=== PATIENT | male | born 1955 | race Caucasian/White ===

== ENCOUNTER → 2018-01-28 08:07 | Outpatient (POV) | payer BC, SELFPAY | PROVIDERS: PCP Family Medicine; Visit Provider Dentist | DX: Z00.00 Encounter for general adult medical examination without abnormal findings (principal) ==

== ENCOUNTER → 2018-02-11 08:23 | Outpatient (POV) | payer BC, SELFPAY | PROVIDERS: PCP Family Medicine; Visit Provider Dentist | DX: Z00.00 Encounter for general adult medical examination without abnormal findings (principal) ==

== ENCOUNTER → 2019-08-10 08:43 | Outpatient (CLI) | payer MEDICARE, OTHER, SELFPAY ==
--- NOTE | 2019-08-10 08:45 | CA_ITS ---
APPROVED REPORT Proration Clerk: Mary Shore RVT Study Quality: Good Indications: htn Risk Factors Hypertension Hyperlipidemia Diabetes Renal Artery Doppler Origin (R) 181.1/ cm/sec Proximal (R) 231.2/ cm/sec Mid (R) 82.9/ cm/sec Distal (R) 85.8/ cm/sec Renal Aorta Ratio (R) 2.02 Segmental A. (R) 31.6/9.9 cm/sec RI: 0.68 Segmental A. Sup (R) 24.1/9.1 cm/sec Segmental A. Mid (R) 27.0/8.6 cm/sec Segmental A. Inf (R) 31.6/9.9 cm/sec Origin (L) 109.1/ cm/sec Proximal (L) 98.7/ cm/sec Mid (L) 107.5/ cm/sec Distal (L) 119.0/ cm/sec Renal Aorta Ratio (L) 1.04 Segmental A. (L) 61.3/20.0 cm/sec RI: 0.67 Segmental A. Sup (L) 49.5/16.5 cm/sec Segmental A. Mid (L) 61.3/20.0 cm/sec Segmental A. Inf (L) 42.7/14.9 cm/sec Renal Measurements Kidney Size (R) 11.1x6.0 cm Cortical Thickness (R) 1.6 cm Kidney Size (L) 11.4x7.2 cm Cortical Thickness (L) 1.5 cm Conclusion Study suggests less than 60% stenosis of the right renal artery. Study suggests normal left renal artery no stenosis seen. 3.5 cm cyst upper pole left kidney and a 1.1 cm cyst mid pole left kidney. Electronically signed by : Wyatt Barnard MD 08/10/2019 17:14:46
== END ==
PROVIDERS: PCP Family Medicine; Visit Provider Urology
DX: I10 Essential (primary) hypertension; E78.5 Hyperlipidemia, unspecified; I25.10 Atherosclerotic heart disease of native coronary artery without angina pectoris; I48.91 Unspecified atrial fibrillation; Z86.79 Personal history of other diseases of the circulatory system; Z98.890 Other specified postprocedural states
CPT/HCPCS: 93976

== ENCOUNTER → 2019-08-18 14:38 | Outpatient (CLI) | payer MEDICARE, OTHER, SELFPAY | PROVIDERS: PCP Family Medicine; Visit Provider Family Medicine | DX: R42 Dizziness and giddiness (principal) | CPT/HCPCS: 93225; 93226 ==

== ENCOUNTER → 2019-08-22 11:10 | Outpatient (CLI) | payer MEDICARE, OTHER, SELFPAY ==
--- NOTE | 2019-08-22 11:13 | CA_ITS ---
APPROVED REPORT Design Project Manager: ROICO Laterality: Bilateral Study Quality: Good Indications: Dizziness and Vertigo Doppler Spectral Velocity Analysis dICA (R) 66.30/23.00 cm/s dICA (L) 76.10/24.80 cm/s Chen (R) 70.00/20.10 cm/s Chen (L) 69.10/21.60 cm/s pICA (R) 55.40/15.70 cm/s pICA (L) 55.60/15.30 cm/s dCCA (R) 60.30/11.80 cm/s dCCA (L) 80.50/15.80 cm/s pCCA (R) 74.90/14.20 cm/s pCCA (L) 82.80/13.80 cm/s Vert (R) 47.30/13.80 cm/s Vert (L) 34.70/6.30 cm/s ICA/CCA 1.16 ICA/CCA 0.90 Findings Duplex evaluation demonstrates stenosis of the right proximal internal carotid artery <20% with PSV <140 cm/sec, EDV <100 cm/sec, and IC/CC Ratio <4.0.Duplex evaluation demonstrates stenosis of the left proximal internal carotid artery <20% with PSV <140 cm/sec, EDV <100 cm/sec, and IC/CC Ratio <4.0.Antegrade flow seen bilateral vertebral arteries. Conclusion Duplex evaluation demonstrates stenosis of the right proximal internal carotid artery <20% with PSV <140 cm/sec, EDV <100 cm/sec, and IC/CC Ratio <4.0.Duplex evaluation demonstrates stenosis of the left proximal internal carotid artery <20% with PSV <140 cm/sec, EDV <100 cm/sec, and IC/CC Ratio <4.0.Antegrade flow seen bilateral vertebral arteries. Electronically signed by : Nickolas Reyna, 08/23/2019 10:12:45
== END ==
PROVIDERS: PCP Family Medicine; Visit Provider Family Medicine
DX: R42 Dizziness and giddiness (principal)
CPT/HCPCS: 93880

== ENCOUNTER → 2019-08-31 10:09 | Outpatient (CLI) | payer MEDICARE, SELFPAY ==
--- NOTE | 2019-08-31 10:09 | CT_ITS ---
Procedure: CT ANGIO ABDOMEN CLINICAL HISTORY: see renal Renal artery stenosis, abnormal duplex of the renal arteries showing less than 60 percent stenosis of the right renal artery., Hypertension, hyperlipidemia, diabetes COMPARISON: CA RENAL ARTERY DUPLEX from 08/10/2019 TECHNIQUE: IV Contrast: 100ml Optiray 350 Axial images obtained with sagittal and coronal reformats. All CT scans at the facility use one or more dose reduction, viz: automated exposure control, ma/kV adjustment per patient size (including targeted exams where dose is matched to indication, i.e. head), or iterative reconstruction technique. FINDINGS: There are atheromatous changes involving the aorta. The superior mesenteric artery has some mild soft plaque proximally with no significant stenosis. Unremarkable appearing celiac artery. No significant renal artery stenosis evident. There is some minimal calcific plaque involving the segmental artery to the mid aspect of the right kidney without significant stenosis. There is minimal soft plaque involving the mid aspect of the right renal artery with 20- 25 percent stenosis. There is a single left renal artery with some minimal calcific plaque involving the segmental there is a subtle 5 mm hypodensity in the patent dome anteriorly on the left nonspecific too small to categorize. There is a small hiatal hernia. There are multiple nonobstructing punctate bilateral renal calculi which are 3 mm or less. There is a 3.4 cm cyst along the anterior aspect of the left kidney. Incidental note made of colonic diverticulosis branches but no significant stenosis. Scattered calcific plaque involves the lower abdominal aorta and the common and external and internal iliac arteries with no significant stenosis. There is mild ectasia of the distal aspect of the right common iliac of approximately 1.5 cm. Non angiographic findings: IMPRESSION: 1. No hemodynamic significant stenotic lesions of the renal arteries. 2. There is a small amount of calcific plaque involving the segmental aspect of the renal arteries and there is approximately 20 to 25 percent stenosis of the mid aspect of the right renal artery with soft plaque. 3. Nonobstructing bilateral renal calculi Dictated by: Wyatt Barnard MD 09/01/2019 13:21 Electronically signed by Wyatt Barnard MD in [facility] 09/01/2019 13:21
== END ==
PROVIDERS: PCP Family Medicine; Visit Provider Urology
DX: I10 Essential (primary) hypertension (principal); I70.1 Atherosclerosis of renal artery
CPT/HCPCS: 74175

== ENCOUNTER → 2020-05-16 12:54 | Outpatient (CLI) | payer MEDICARE, OTHER, SELFPAY ==
--- NOTE | 2020-05-16 13:04 | XR_ITS ---
PROCEDURE: XR SHOULDER RT MIN 2V CLINICAL INDICATION: PAIN IN RIGHT SHOULDER COMPARISON: CR CXR CHEST(2 VIEWS-NOT PORTABLE) from 03/06/2017 FINDINGS: New fracture or dislocation. There is an old fracture of the junction of the mid distal 3rd of the right clavicle. There are mild osteoarthritic changes of the glenohumeral joint. No lytic or blastic change. Other findings:None. IMPRESSION: Mild osteoarthritic change otherwise negative Dictated by: Wyatt Barnard MD 05/16/2020 13:50 Wyatt Barnard MD in [facility] 05/16/2020 13:50
--- NOTE | 2020-05-16 13:04 | XR_ITS ---
PROCEDURE: XR CHEST 2V CLINICAL HISTORY: COUGH COMPARISON: CR CXR1 CHEST-PORTABLE from 02/13/2013 CR CXR CHEST(2 VIEWS-NOT PORTABLE) from 10/06/2016 CR CXR CHEST(2 VIEWS-NOT PORTABLE) from 03/06/2017 FINDINGS: The cardiomediastinal silhouette and pulmonary vascularity are within normal limits. The lungs are clear without infiltrates, suspicious nodules, or pleural effusions. There is an azygos fissure as a normal variant. There is an old right clavicular fracture. IMPRESSION: No acute findings. Dictated by: Wyatt Barnard MD 05/16/2020 13:51 Wyatt Barnard MD in [facility] 05/16/2020 13:51
[2020-05-16 13:35] VITALS: PULSE 87; PULSE 91
== END ==
PROVIDERS: PCP Family Medicine; Visit Provider Family Medicine
DX: R05 Cough (principal); M25.511 Pain in right shoulder
CPT/HCPCS: 71046; 73030; 94060; 94640

== ENCOUNTER → 2021-05-16 10:31 | Outpatient (CLI) | payer MEDICARE, OTHER, SELFPAY ==
[2021-05-16 11:27] LABS: Chloride 103 mmol/L (98-107); Potassium 4.3 mmoL/L (3.5-5.1); Sodium 138 mmol/L (136-145)
[2021-05-16 11:29] LABS: Alanine Aminotransferase 40 U/L (12-78); Aspartate Amino Transferase 39 U/L (17-59); Blood Urea Nitrogen 23 mg/dl (9-20); Estimated Glomerular Filt Rate 84 ml/min (>60); GFR (African American) 102 ML/MIN (>60)
[2021-05-16 11:30] LABS: Albumin Level 4.2 g/dl (3.5-5.0); Albumin/Globulin Ratio 1.5 (1.1-1.8); Alkaline Phosphatase 70 U/L (38-126); Anion Gap 14.3 mEq/L (5-15); Bilirubin,Total 0.4 mg/dl (0.2-1.3); Calcium 9.3 mg/dl (8.4-10.2); Carbon Dioxide 25 mmol/L (22.0-30.0); Chol/HDL Ratio 4.3 (1-3.5); Cholesterol 217 mg/dl (140-200); Globulin 2.8 g/dL (1.3-3.2); Glucose 192 mg/dl (74-100); HDL Cholesterol 51 mg/dl (40-60); Triglycerides 253 mg/dl (30-150); VLDL Cholesterol 51 mg/dL (0-40)
[2021-05-16 11:41] LABS: Direct LDL Cholesterol 89.91 mg/dL (100-129)
[2021-05-16 12:06] LABS: Hemoglobin A1C 11.2 % (4.0-6.0)
== END ==
PROVIDERS: Visit Provider Family Medicine
DX: E11.9 Type 2 diabetes mellitus without complications (principal); E78.1 Pure hyperglyceridemia; E78.2 Mixed hyperlipidemia
CPT/HCPCS: 36415; 80053; 80061; 83036

== ENCOUNTER → 2023-04-14 07:04 | Outpatient (CLI) | payer MEDICARE, OTHER, SELFPAY ==
--- NOTE | 2023-04-14 07:15 | NM_ITS ---
APPROVED REPORT Exam: Nuclear Stress Test Indication: CAD, H/O MN, DYSRHYTHMIA, HTN, DM, HYPERLIPIDEMIA Patient Location: Outpatient Stress Tech: Reba Montes De Oca DE Tech:Shivani Kennedy EDDIEPal RT (R)(N)(M) Ht: 6 ft 1 in Wt: 190 lbs HR: 82 bpm BP: 129/90 mmHg BSA: 2.11 m2 Rhythm: NSR TID: 1.22 BMI: 25.0 History: CAD, H/O MN, DYSRHYTHMIA, HTN, DM, HYPERLIPIDEMIA Procedure: Patient received 0.4 mg of intravenous Lexiscan, resting heart rate 82 bpm, resting blood pressure 129/90 mmHg, with Lexiscan maximum heart rate achieved was 90 bpm which is % of the maximum predicted heart rate and blood pressure was 143/74 mmHg. With Lexiscan, patient denied any complaint of chest pain. Cardiac Stress and Resting SPECT Images: Cardiac Stress and Resting SPECT images were obtained using technetium 99m Myoview 31.5 mCi stress and 10.03 mCi at rest. Resting and stress imaging in supine position demonstrate a medium-sized, moderate, fixed perfusion defect in the inferior LV wall. This is no longer visualized with prone stress imaging. Findings are suggestive of diaphragmatic attenuation. There is increased transient ischemic dilatation ratio (TID 1.22), suggestive of possible multivessel disease or balanced ischemia. Gated imaging demonstrates low-normal global and regional LV systolic function. LVEF is 52%. Conclusion: Diaphragmatic attenuation is present. No definite evidence of fixed or reversible perfusion defects. Increased transient ischemic dilatation ratio (TID 1.22), suggestive of possible multivessel disease or balanced ischemia. Gated imaging demonstrates low-normal global and regional LV systolic function. LVEF is 52%. Electronically signed by : Alaina Wilkes MD 04/25/2023 17:15:46
[2023-04-14 07:30] LABS: Basophils % 0.5 % (0.1-2.0); Eosinophils # 0.4 K/mm3 (0.0-0.4); Eosinophils % 8.3 % (0.1-12.0); Hematocrit 46.2 % (42.0-52.0); Hemoglobin 14.8 g/dL (14.1-18.0); Lymphocytes # 1.5 K/mm3 (0.7-4.5); Lymphocytes % 34.6 % (10-50); Mean Corpuscular Volume 97.1 fl (80-94); Mean Platelet Volume 7.7 fl (7.4-10.4); Monocytes # 0.2 K/mm3 (0.1-1.0); Monocytes % 5.3 % (1.7-9.3); Neutrophils # 2.2 K/mm3 (1.8-7.8); Neutrophils % 51.3 % (37.0-80.0); Platelet Count 201 K/mm3 (142-424); Red Blood Count 4.76 M/mm3 (4.60-6.20); Red Cell Distribution Width 13.1 % (11.5-17.5); White Blood Count 4.3 K/mm3 (4.8-10.8)
--- NOTE | 2023-04-14 09:00 | CA_ITS ---
APPROVED REPORT Exam: Pharmacologic Technologist: Reba Montes De Oca Ht: 6 ft 1 in Wt: 192 lbs BSA: 2.11 m2 HR: 82 bpm BP: 129/90 mmHg Rhythm: NSR Indications: Abnormal ekg Medical History Medications: Metoprolol,,,,, Losartan,,,,, Allopurinol,,,,, Pantoprazole,,,,, HCTZ,,,,, CloPIdogrel,,,,, FeNOfibrate,,,,, DilTiazem,,,,, RoSUVASTATIN,,,,, INvOKAmet,,,,, ICOSAPENT,,,,, NanOCRYSTALIZED,,,,, Stress Test Details Test: LEXISCAN HR Resting HR: 88 bpm Max Heart Rate (APMHR): 151 bpm Max HR Achieved: 94 bpm Target HR (85% APMHR): 128 bpm % of APMHR: 62 Recovery HR: 85 bpm BP Resting BP: 129.0/90.0 mmHg Max BP: 145.0/81.0 mmHg Recovery BP: 145.0/81.0 mmHg ECG Resting ECG: Normal sinus rhythm Stress ECG: No significant ST changes Arrhythmia: None Clinical Exercise duration: 04:00 min Highest Stage Achieved: Exercise capacity: 1.0 METs Stress ECG Conclusion Symptoms: Flushed feeling Arrhythmias/Ectopy: None ST-T Changes: No significant ST changes Conclusion: Unremarkable Lexiscan stress test. Myoview images are reported separately. Test Summary REST . . . . . . . Resting REST 02:20 . . 88 . 129/ 90 . . Stage 1 . . . . . . . Myoview Injected Stage 1 01:00 . . 89 . . . . Stage 2 01:00 . . 92 . 143/ 74 . . Stage 3 01:00 . . 86 . . . . Stage 4 01:00 . . 88 . 138/ 75 . Stop exercise at 04:00 RECOVERY 01:00 . . 93 . . . . RECOVERY 02:00 . . 88 . 145/ 81 . . RECOVERY 03:00 . . 85 . 145/ 81 . . RECOVERY 03:04 . . 85 . 145/ 81 . . Electronically signed by : Alaina Wilkes MD 04/25/2023 17:09:27
[2023-04-14 09:32] LABS: Alanine Aminotransferase 45 U/L (12-78); Albumin Level 4.1 g/dl (3.5-5.0); Alkaline Phosphatase 60 U/L (38-126); Anion Gap 16.1 mEq/L (5-15); Aspartate Amino Transferase 40 U/L (17-59); Bilirubin,Direct 0.2 mg/dl (0.0-0.4); Bilirubin,Indirect 0.1 mg/dL (0.0-0.9); Bilirubin,Total 0.3 mg/dl (0.2-1.3); Bilirubin,Unconjugated 0.1 mg/dL (0.0-1.1); Blood Urea Nitrogen 23 mg/dl (9-20); Calcium 9.5 mg/dl (8.4-10.2); Carbon Dioxide 23 mmol/L (22.0-30.0); Chloride 103 mmol/L (98-107); Chol/HDL Ratio 4.8 (1-3.5); Cholesterol 182 mg/dl (140-200); Estimated Glomerular Filt Rate 60 ml/min (>60); GFR (African American) 73 ML/MIN (>60); Glucose 162 mg/dl (74-100); HDL Cholesterol 38 mg/dl (40-60); Magnesium 1.3 mg/dl (1.6-2.3); Potassium 4.1 mmoL/L (3.5-5.1); Sodium 138 mmol/L (136-145); Triglycerides 360 mg/dl (30-150); VLDL Cholesterol 72 mg/dL (0-40)
[2023-04-14 09:43] LABS: Direct LDL Cholesterol 76.34 mg/dL (100-129)
[2023-04-14 09:47] LABS: Free T4 (Free Thyroxine) 1.31 ng/dl (0.78-2.19)
[2023-04-14 10:02] LABS: Thyroid Stimulating Hormone 1.94 uIU/mL (0.465-4.68)
== END ==
PROVIDERS: PCP Family Medicine; Visit Provider Physician Assistant
DX: E78.5 Hyperlipidemia, unspecified (principal); I11.9 Hypertensive heart disease without heart failure; I25.10 Atherosclerotic heart disease of native coronary artery without angina pectoris; I48.0 Paroxysmal atrial fibrillation; Z86.79 Personal history of other diseases of the circulatory system; Z95.5 Presence of coronary angioplasty implant and graft; Z98.890 Other specified postprocedural states; R94.31 Abnormal electrocardiogram [ECG] [EKG]
CPT/HCPCS: 36415; 78452; 80048; 80061; 80076; 83735; 84439; 84443; 85025; 93017; A9502; J2785

== ENCOUNTER → 2023-04-30 07:49 | Outpatient (CLI) | payer MEDICARE, OTHER, SELFPAY ==
--- NOTE | 2023-04-30 07:53 | CA_ITS ---
APPROVED REPORT EXAM: Comprehensive 2D, Doppler, and color-flow Echocardiogram Dispatcher Clerk: ANDREEA Layton, RVS Ht: 6 ft 1 in Wt: 193lbs BSA: 2.12 BP: 139/78 mmHg Rhythm: Atrial Fibrillation Indications: paroxysmal afib, abn stress test, palpitations, HTN, HLD 2D Dimensions LVDd 5.52 cm M: 4.2 - 5.9 LVEF (Visual) 48.60 % LVDs 4.15 cm M: 2.5 - 4.0 LA Volume 92.30 mL Aortic Root 3.46 cm M: 3.1 - 3.7 LA Volume Index 43.54 mL/m2 (M/F) 16-34 Left Atrium 3.72 cm M: 3.0 - 4.0 LVOT 2.11 cm (M/F) 1.5-2.5 M-Mode Dimensions RVDd 3.18 cm (0.9-2.6) LA Diam 4.89 cm (1.9-4.0) LVDd 5.19 cm (3.5-5.7) Ao Diam 3.61 cm (2.0-3.7) LVDs 3.87 cm (3.5-5.7) IVSd 1.16 cm (0.6-1.1) PWd 0.98 cm (0.6-1.1) EF (Teich) 52.60% EPSs 0.76 cm FS 27.30% EDV (Teich) 136.50 mL TAPSE 1.97 (<1.7) ESV (Teich) 64.70 mL LV Diastology E Decel Time 87.00 (160-240 msec) E/A Ratio 0.72 MED E' 6.80 (< 7 cm/sec) MED A' 10.10 cm/s E'/MED E' Ratio 9.62 (>14) LAT E' 8.10 (<10 cm/sec) LAT A' 15.60 cm/s E/LAT E' Ratio 8.07 (>14) Aortic Valve LVOT Max 109.00 (70-110 cm/s) LVOT VTI 26.25 cm AoV Peak Elton. 126.00 (50-130 cm/s) AO Peak GR. 6.40 mmHg AO Mean GR. 3.20 (<5 mmHg) AO VTI 26.12 (18-25 cm) MAY (VTI) 3.51 (2.5-4.5 cm2) Mitral Valve MV A Velocity 91.00 (40-130 cm/s) E/A Ratio 0.72 MV Decel. Time 87.00 (160-240 ms) Pulmonary Valve PV Peak Velocity 77.00 (50-150 cm/s) Tricuspid Valve TR P. Velocity 208.00 cm/s RAP Estimate 10.00 mmHg RVSP 27.30 mmHg Left Ventricle The left ventricle is normal size. The left ventricular systolic function is normal. The left ventricular ejection fraction is within the normal range. There is normal left ventricular wall thickness. There is normal LV segmental wall motion. Diastolic function is indeterminate. LVEF is 55%. Right Ventricle The right ventricle is normal size. The right ventricular systolic function is normal. Atria The left atrium is mildly dilated. The right atrium size is normal. Aortic Valve The aortic valve is normal in structure. There is no aortic valvular stenosis. No aortic regurgitation is present. Mitral Valve The mitral valve is normal in structure. No evidence of mitral valve stenosis. Trace mitral regurgitation. Tricuspid Valve The tricuspid valve leaflets are thin and pliable. Mild tricuspid regurgitation. RVSP is 20-25 mmHg. Pulmonic Valve The pulmonary valve is normal in structure. Trace pulmonic regurgitation. Great Vessels The aortic root is normal in size. The ascending aorta is not well visualized. IVC is normal in size and collapses >50% with inspiration. Pericardium There is no pericardial effusion. Other Information Study Quality: Fair Conclusion Normal biventricular systolic function. No significant valvular stenosis or regurgitation. Electronically signed by : Alaina Wilkes MD 05/02/2023 19:54:42
== END ==
PROVIDERS: PCP Family Medicine; Visit Provider Physician Assistant
DX: E78.5 Hyperlipidemia, unspecified (principal); I11.9 Hypertensive heart disease without heart failure; I25.10 Atherosclerotic heart disease of native coronary artery without angina pectoris; I48.0 Paroxysmal atrial fibrillation; Z86.79 Personal history of other diseases of the circulatory system; Z95.5 Presence of coronary angioplasty implant and graft; Z98.890 Other specified postprocedural states
CPT/HCPCS: 93306

== ENCOUNTER 2023-05-04 07:46 | Day surgery (SDC) | payer MEDICARE, OTHER, SELFPAY ==
[2023-05-04] VITALS (16 sets, daily range): BP systolic 109–154; BP diastolic 58–82; PULSE 54–71; RESP 16–20; TEMP 36.9; O2SAT 90–100; BMI 19.7
--- NOTE | 2023-05-04 07:19 | IR_ITS ---
APPROVED REPORT Patient Location: Outpatient Hospice Liaison: MATTHIAS Burr RT (R) PROCEDURES Left heart catheterization Left ventriculogram Selective coronary angiogram Drug-eluting stent deployment to the proximal LAD Drug-eluting stent deployment to the proximal dominant right coronary INDICATION Coronary artery disease, High risk abnormal Myoview, Informed consent was obtained prior to the procedure. COMPLICATIONS None Estimated Blood Loss: Less than 10 mls TECHNIQUE One percent lidocaine was used to anesthetize the right groin. The right femoral artery was accessed via the Seldinger technique. A 4-Namibian sheath was placed in the right femoral artery. The JL-4 and JR-4 catheter was also used to perform left heart catheterization left ventriculogram and selective coronary angiogram. At the end the diagnostic angiogram therapeutic heparin was administered giving a therapeutic ACT and the 4 [place]ian sheath was exchanged for a 6 [place] sheath. A JL 4 guide catheter was placed in left main artery followed by Choice PT extra-support wire down the LAD. A 3.5 x 38 mm [place] frontier stent was deployed at 20 karen reducing the severe stenosis to 0%. Following this the JR4 guide catheter was used to cannulate the right coronary artery however there was not enough guide support to even pass the wire through the stenotic area without the guide kicking out. Because of this an AL 0.75 guide catheter was placed followed by the advancement of a Choice PT extra-support wire. A guide liner was then required for additional support and a 4 mm x 38 mm [place] frontier stent was deployed at 20 karen in the proximal right coronary artery reducing the severe stenosis to 0%. MATTHEW-3 flow was present before and after the procedure. At the end the procedure the apparatus was removed the groin is reprepped closure change sheath was removed partial hemostasis was achieved using Perclose device patient was transferred to the postop holding in stable condition ANGIOGRAPHIC RESULTS The left main artery Normal The left anterior descending artery Has a proximal eccentric 40% stenosis followed by a shelf like eccentric 70% stenosis also proximally located. The mid LAD then has stents which are widely patent with 30 to 40% in-stent restenosis. The circumflex artery Is a nondominant vessel and has a proximal 40% stenosis with additional 30% stenoses. The right coronary artery Is a large dominant tortuous vessel and has a proximal hazy 70% concentric stenosis. There are additional 30 and 40% eccentric and concentric stenoses throughout the mid and distal right coronary artery. The posterior lateral branch is large and has a proximal 60% stenosis while the large posterior descending artery has diffuse mid vessel 40% stenosis The MITCHELL ventriculogram reveals Not performed The left ventricular end-diastolic pressure Not measured IMPRESSION Severe two-vessel coronary artery disease as described above Successful stenting the proximal ID severe disease reduced to 0% with 1 drug-eluting stent Successful stenting of the proximal dominant right coronary artery severe disease reduced to 0% with 1 drug-eluting stent Persistent moderate disease as described above PLAN 1. Dual antiplatelet therapy 2. LDL less than 55 to be achieved with high intensity statin 3. Avoidance of tobacco products 4. Cardiac rehabilitation 5. Risk factor modification Electronically signed by : Darien Santacruz MD 05/04/2023 10:56:38
[2023-05-04 08:45] LABS: Basophils # 0.1 K/mm3 (0-0.2); Basophils % 0.8 % (0.1-2.0); Eosinophils # 0.4 K/mm3 (0.0-0.4); Eosinophils % 6.5 % (0.1-12.0); Hematocrit 46.7 % (42.0-52.0); Hemoglobin 15.3 g/dL (14.1-18.0); Lymphocytes # 1.8 K/mm3 (0.7-4.5); Lymphocytes % 27.7 % (10-50); Mean Corpuscular HGB Conc 32.7 g/dL (31.8-35.4); Mean Corpuscular Hemoglobin 31.2 pg (27.0-31.2); Mean Corpuscular Volume 95.4 fl (80-94); Monocytes # 0.3 K/mm3 (0.1-1.0); Monocytes % 5.2 % (1.7-9.3); Neutrophils # 3.8 K/mm3 (1.8-7.8); Neutrophils % 59.7 % (37.0-80.0); Platelet Count 294 K/mm3 (142-424); Red Cell Distribution Width 13.1 % (11.5-17.5); White Blood Count 6.4 K/mm3 (4.8-10.8)
[2023-05-04 08:52] LABS: Anion Gap 16.3 mEq/L (5-15); Blood Urea Nitrogen 26 mg/dl (9-20); Calcium 9.7 mg/dl (8.4-10.2); Carbon Dioxide 26 mmol/L (22.0-30.0); Chloride 104 mmol/L (98-107); Creatinine Clearance Estimated 72 mL/min (50-200); Estimated Glomerular Filt Rate 60 ml/min (>60); GFR (African American) 73 ML/MIN (>60); Glucose 172 mg/dl (74-100); Potassium 4.3 mmoL/L (3.5-5.1); Sodium 142 mmol/L (136-145)
[2023-05-04 13:48] LABS: CATHL Activated Clotting Time 283 SEC (74-125)
== END 2023-05-04 16:20 | disposition home or self-care (01) ==
PROVIDERS: PCP Family Medicine; Visit Provider Internal Medicine
DX: E78.5 Hyperlipidemia, unspecified (principal); I11.9 Hypertensive heart disease without heart failure; I25.10 Atherosclerotic heart disease of native coronary artery without angina pectoris; I48.0 Paroxysmal atrial fibrillation; R94.39 Abnormal result of other cardiovascular function study; Z79.899 Other long term (current) drug therapy; Z87.891 Personal history of nicotine dependence; Z95.5 Presence of coronary angioplasty implant and graft; Z79.01 Long term (current) use of anticoagulants
CPT/HCPCS: 80048; 85025; 85347; 92928; 93458; 99152; 99153; C1725; C1760; C1769; C1876; C1894; C9600; J1644; J2720; Q9967

== ENCOUNTER → 2023-05-18 09:29 | Outpatient (CLI) | payer MEDICARE, OTHER, SELFPAY ==
[2023-05-18 10:05] LABS: Basophils % 0.8 % (0.1-2.0); Eosinophils # 0.3 K/mm3 (0.0-0.4); Eosinophils % 5.5 % (0.1-12.0); Hematocrit 42.5 % (42.0-52.0); Hemoglobin 14.6 g/dL (14.1-18.0); Lymphocytes # 1.7 K/mm3 (0.7-4.5); Lymphocytes % 28.9 % (10-50); Mean Corpuscular HGB Conc 34.2 g/dL (31.8-35.4); Mean Corpuscular Hemoglobin 33.3 pg (27.0-31.2); Mean Corpuscular Volume 97.1 fl (80-94); Mean Platelet Volume 7.9 fl (7.4-10.4); Monocytes # 0.3 K/mm3 (0.1-1.0); Monocytes % 4.5 % (1.7-9.3); Neutrophils # 3.6 K/mm3 (1.8-7.8); Neutrophils % 60.4 % (37.0-80.0); Platelet Count 223 K/mm3 (142-424); Red Blood Count 4.38 M/mm3 (4.60-6.20); Red Cell Distribution Width 13.3 % (11.5-17.5); White Blood Count 5.9 K/mm3 (4.8-10.8)
[2023-05-18 11:04] LABS: Anion Gap 15.9 mEq/L (5-15); Blood Urea Nitrogen 26 mg/dl (9-20); Calcium 9.7 mg/dl (8.4-10.2); Carbon Dioxide 26 mmol/L (22.0-30.0); Chloride 99 mmol/L (98-107); Estimated Glomerular Filt Rate 60 ml/min (>60); GFR (African American) 73 ML/MIN (>60); Glucose 154 mg/dl (74-100); Potassium 4.9 mmoL/L (3.5-5.1); Sodium 136 mmol/L (136-145)
== END ==
PROVIDERS: PCP Family Medicine; Visit Provider Internal Medicine
DX: I25.10 Atherosclerotic heart disease of native coronary artery without angina pectoris (principal); Z95.5 Presence of coronary angioplasty implant and graft
CPT/HCPCS: 36415; 80048; 85025

== ENCOUNTER 2025-01-24 14:42 | Emergency (ER) | payer MEDICARE, OTHER, SELFPAY ==
[2025-01-24 14:55] VITALS: BP 160/75; PULSE 59; RESP 18; TEMP 36.9; O2SAT 93; BMI 24.6
--- NOTE | 2025-01-24 14:56 | ECG_ITS ---
APPROVED REPORT Exam: Resting ECG HR:64 bpm ECG Measurements Heart Rate 64 AXES HI 160 P 165 QRSd 120 QRS 64 QT 403 T 28 QTc 413 Conclusion SINUS RHYTHM SEPTAL MYOCARDIAL INFARCTION , OF INDETERMINATE AGE [40+ ms Q WAVE IN V1/V2] ABNORMAL ECG UNCONFIRMED REPORT Electronically signed by : QUINN RACHEL, 01/25/2025 06:31:15
[2025-01-24 15:00] VITALS: BP 145/69; PULSE 60; RESP 15; O2SAT 96
[2025-01-24 15:03] LABS: Basophils # 0.1 K/mm3 (0-0.2); Basophils % 0.7 % (0.1-2.0); Eosinophils # 0.3 Kmm3 (0.0-0.4); Eosinophils % 3.5 % (0.1-12.0); Hematocrit 42.2 % (42.0-52.0); Hemoglobin 14.4 g/dL (14.1-18.0); Immature Granulocytes # 0.01 10^3uL; Immature Granulocytes % 0.1 %; Lymphocytes # 2.4 K/mm3 (0.7-4.5); Lymphocytes % 33.2 % (10-50); Mean Corpuscular HGB Conc 34.1 g/dL (31.8-35.4); Mean Corpuscular Hemoglobin 31.4 pg (27.0-31.2); Mean Corpuscular Volume 92.1 fl (80-94); Mean Platelet Volume 9.4 fl (7.4-10.4); Monocytes # 0.4 K/mm3 (0.1-1.0); Neutrophils # 4.1 K/mm3 (1.8-7.8); Neutrophils % 56.5 % (37.0-80.0); Nucleated Red Blood Cells # 0 10^3/uL; Nucleated Red Blood Cells % 0 %; Platelet Count 230 K/mm3 (142-424); Red Blood Count 4.58 M/mm3 (4.60-6.20); Red Cell Distribution Width 12.5 % (11.5-17.5); Red Cell Distribution Width-SD 42.2 fL; White Blood Count 7.2 K/mm3 (4.8-10.8)
[2025-01-24] MEDS: ONDANSETRON 4MG/2ML VIAL 4 MG IV (15:05)
[2025-01-24] MEDS: LACTATED RINGERS 1000ML 1,000 ML 999 ML IV (15:06)
[2025-01-24 15:07] LABS: Albumin Level 4.6 g/dl (3.5-5.0); Chloride 104 mmol/L (98-107); Sodium 139 mmol/L (136-145)
[2025-01-24 15:08] LABS: Potassium 4.2 mmoL/L (3.5-5.1)
[2025-01-24 15:10] LABS: Alanine Aminotransferase 33 U/L (12-78); Alkaline Phosphatase 58 U/L (38-126); Anion Gap 16.2 mEq/L (5-15); Aspartate Amino Transferase 39 U/L (17-59); Bilirubin,Total 0.8 mg/dl (0.2-1.3); Blood Urea Nitrogen 37 mg/dl (9-20); Carbon Dioxide 23 mmol/L (22.0-30.0); Creatine Kinase 142 U/L (55-170); Creatinine Clearance Estimated 63 mL/min (50-200); Estimated Glomerular Filt Rate 54 ml/min (>60); GFR (African American) 66 ML/MIN (>60)
[2025-01-24 15:11] LABS: Albumin/Globulin Ratio 1.4 (1.1-1.8); Globulin 3.3 g/dL (1.3-3.2); Glucose 226 mg/dl (74-100); Total Protein,Serum 7.9 g/dl (6.3-8.2)
--- OUTSIDE RECORDS SUMMARY | 2025-01-24 15:24 | XMS_ITS | Encounter Summary ---
Author Organization [facility] [address] Care Team Providers Care Air Transportation Provider Name Role Phone Erich Ball MD Primary Care Provider + [phone] Louis Brewer MD Unavailable [phone] Encounter Details Date Type Department Care Team (Late st Contact Info) Description 07/30/2017 Orders Only [facility] Ar[facility] Edg [address] [facility] [address] [place] [address] Louis Brewer MD [address] [place] [address] Social History Tobacco Use Types Packs/Day Years Used Date Smoking Tobacco: Former Cigarettes 1.5 26 1 09/30/1968 - 07/30/1995 Smokeless Tobacco: Never Alcohol Use Standard Drinks/Week Comments Yes 12 (1 standard drink = 0.6 oz pu re alcohol) Sex and Gender Information Value Date Recorded Sex Assigned at Not on file Legal Sex Male 9:11 AM EDT Gender Identity Not on file Sexual Orientation Not on file documented as of this encounter Functional Status * Cognitive and Functional Status Question Answer Date of Assessment Author Is the person deaf or does he/she have serious difficulty hearing? No 07/31/2017 9:51 AM Adrienne Delarosa RN Is the person blind or does he/she have serious difficulty seeing even when wearing glasses? No 07/31/2017 9:51 AM Adrienne Delarosa RN Does this person have seriou s difficulty walking or climbing stairs? No 07/31/2017 9:51 AM Adrienne Delarosa RN Does this person have difficulty dressing or bathing? No 07/31/2017 9:51 AM Adrienne Carolina RN documented as of this encounter Mental Status * Cognitive and Functional Status Question Answer Entry Date Author Because of a physical, menta l or emotional condition, does this person have difficulty doing errands alone such as visiting a doctor's office or shopping? No 07/31/2017 9:51 AM Adrienne Delarosa RN Because of a physical, menta l or emotional condition, does this person have serious difficulty concentrating, remembering or making decisions? No 07/31/2017 9:51 AM Adrienne Delarosa RN documented in this encounter Plan of Treatment Not on file documented as of this encounter Procedures Procedure Name Priority Date/Time Associated Diagnosis Comments EP LAB RECORDINGS Routine 07/30/2017 7:39 AM EST documented in this encounter Results * EP LAB RECORDINGS (07/30/2017 7:39 AM EST) 07/30/2017 7:39 AM EST us Louis Brewer MD CARDIAC CATH ORDERABLES Edited Result - Final [facility] [address] [place] [address] documented in this encounter Visit Diagnoses Not on filedocumented in this encounter Care Teams Air Transportation Provider Relationship Specialty Start Date End Date Erich Ball MD [address] [place] [id number] PCP - General Family Medicine 05/15/17 Louis Brewer MD [address] [facility] [place] [id number] Consulting Physician Internal Medicine - Clinical Cardiac Electrophysiology 05/18/17 documented as of this encounter
--- OUTSIDE RECORDS SUMMARY | 2025-01-24 15:24 | XMS_ITS | Clinical Summary ---
Author Organization [facility] Arrhythmia [facility] Address [address] [place] [address] Phone Care Team Providers Care Frame Coverer Name Role Phone Erich Ball MD Primary Care Provider [phone] Louis Brewer MD Unavailable [phone] Allergies No known active allergies Medications canagliflozin-me tformin 150-1,000 mg Oral Tablet Take 150 mg by mouth daily. Active losartan (COZAAR) 100 mg Oral Tablet Take 50 mg by mouth daily. Active pantoprazole (PROTONIX) 40 mg Oral Tablet, Delayed Release (E.C.) Take 40 mg by mouth daily. Active glipiZIDE (GLUCOTROL) 5 mg Oral Tablet Take 5 mg by mouth daily. Active fenofibrate (TRICOR) 145 mg Oral Tablet Take 145 mg by mouth daily. Active Pitavastatin (LIVALO) 4 mg Oral Tablet Take 2 mg by mouth daily. Active allopurinol (ZYLOPRIM) 300 mg Oral Tablet Take 300 mg by mouth daily. Active fish oil omega 3-dha-epa 300-1,000 mg Oral Capsule, Delayed Release(E.C.) Take 2 g by mouth daily. Active ASCORBATE CALCIUM (VITAMIN C ORAL) Take 1 Tab by mouth daily. Active clopidogrel (PLAVIX) 75 mg Oral Tablet Take 75 mg by mouth daily. Active Active Problems Problem Noted Date Diagnosed Date S/P ablation of atrial fibrillation 07/30/2017 Overview (07/30/2017): S/P PVAI, CTI line ablation by Dr. Brewer on 07/30/17 Atrial fibrillation Sinus bradycardia Hypertensive heart disease Gastrointestinal hemorrhage Hyperlipidemia ZANDER (obstructive sleep apnea) Type 2 diabetes mellitus Coronary arteriosclerosis Myocardial infarction Typical atrial flutter Surgical History Surgery Date Site/Laterality Comments CARDIAC SURGERY 11/05/2016 LHC-2 stents ABLATION OF DYSRHYTHMIC FOCUS 07/30/2017 PVAI, CTI line ablation by Dr. Brewer Medical History Medical History Date Comments Atrial fibrillation (HCC) Sinus bradycardia Hypertensive heart disease Gastrointestinal hemorrhage Hyperlipidemia Type 2 diabetes mellitus (HCC) Coronary arteriosclerosis Myocardial infarction (HCC) ZANDER (obstructive sleep apnea) cp ap - pressure setting 4 Hypertension Encounter for blood transfusion 01/2017 GI bleed Anesthesia sluggish upon a wakening Family History Medical History Relation Name Comments Anesth Problems Neg Hx Social History Tobacco Use Types Packs/Day Years Used Date Smoking Tobacco: Former Cigarettes 1.5 26 1 09/30/1968 - 07/30/1995 Smokeless Tobacco: Never Tobacco Cessation:Counseling Given: Yes Alcohol Use Standard Drinks/Week Comments Yes 12 (1 standard drink = 0.6 oz pu re alcohol) Sex and Gender Information Value Date Recorded Sex Assigned at Not on file Legal Sex Male 9:11 AM EDT Gender Identity Not on file Sexual Orientation Not on file Obstetrics History Last Filed Vital Signs Vital Sign Reading Time Taken Comments Blood Pressure 142/82 07/20/2018 9:19 AM EST Pulse 61 07/20/2018 9:19 AM EST Temperature 36.8 C (98.3 F) 07/31/2017 7:51 AM EST Respiratory Rate 18 07/31/2017 7:51 AM EST Oxygen Saturation 96% 07/20/2018 9:19 AM EST Inhaled Oxygen Concentration - - Weight 91.6 kg (202 lb) 07/20/2018 9:19 AM EST Height 185.4 cm (6' 1 ) 07/20/2018 9:19 AM EST Body Mass Index 26.65 07/20/2018 9:19 AM EST Plan of Treatment Health Maintenance Due Date Last Done Comments Wellness Exam Medicare 1956 Kidney Health: uACR 1963 Lipids 1963 Diabetic Eye Exam 1971 DTaP/TDaP/Td (1 - Tdap) 1972 Pneumococcal Vaccine 50+ (1 of 2 - PCV) 1972 Cologuard 1998 FIT 1998 Sigmoidoscopy 1998 Virtual Colonography 1998 Zoster (1 of 2) 2003 RSV or 60+ (1 - Ris k 60-74 years 1-dose series) 2013 Hemoglobin A1c 03/24/2018 09/24/2017 (Postponed) Kidney Health: eGFR 07/30/2018 07/30/2017 COVID-19 Vaccine (1 - 2023-2 5 season) 2024 Influenza Vaccine (Season Ended) 2025 09/24/2017 (Postponed) Colon Cancer Screening 09/24/2027 Colonoscopy 09/24/2027 09/24/2017 (Postponed) Hepatitis C Screening Addressed 09/24/2017 (Postponed) Overridden with the intention of not completing the topic Hepatitis B Vaccine Aged Out No longe r eligible based on patient's age to complete this topic Meningococcal B Vaccine Aged Out No l onger eligible based on patient's age to complete this topic Procedures Procedure Name Priority Date/Time Associated Diagnosis Comments BASIC METABOLIC PANEL STAT 07/30/2017 6:06 AM EST from Last 3 Months or Most Recently Relevant to Health Maintenance Results * (ABNORMAL) BASIC METABOLIC PANEL (07/30/2017 6:06 AM EST) Sodium 139 136 - 145 mmol/L 07/30/2017 6:51 AM EST [facility] Potassium 3.9 3.5 - 5.0 mmol/L 07/30/2017 6:51 AM EST [facility] Chloride 102 98 - 107 mmol/L 07/30/2017 6:51 AM EST [facility] Total CO2 22 22 - 29 mmol/L 07/30/2017 6:51 AM EST [facility] Anion Gap 15 7 - 16 mmol/L 07/30/2017 6:51 AM EST [facility] Calcium 9.0 8.8 - 10.2 mg/dL 07/30/2017 6:51 AM EST [facility] Glucose Lvl 147(H) 82 - 100 mg/dL 07/30/2017 6:51 AM EST [facility] BUN 16 8 - 23 mg/dL 07/30/2017 6:51 AM EST [facility] Creatinine 1.04 0.67 - 1.30 mg/dL 07/30/2017 6:51 AM EST [facility] GFR Afr Am 87 mL/min/1.7 3 m2 07/30/2017 6:51 AM EST [facility] GFR Non Afr Am 76 mL/min/1.7 3 m2 07/30/2017 6:51 AM EST [facility] Comment: GFR Afr Am and GFR Non Afr Am calculated using CKD-EPI equation. GFR Category GFR(mL/min/1.73 m ) Kidney Function G1 >=90 Normal or high G2 60-89 Mildly decreased G3a 45-59 Mildly to moderately decreased G3b 30-44 Moderately to severely decreased G4 15-29 Severely decreased G5 <15 Kidney Failure Blood VENOUS BLOOD / Unknown Venipuncture / Unknown 07/30/2017 6:06 AM EST 07/30/2017 6:15 AM EST Narrative [facility] - 07/30/2017 6:51 AM EST Notify rn cvor if creatine is 1.5 or greater, and/or GFR <55, and/or potassium greater than or equal to 5.5 or less than or equal to 3.0. Do not repeat if done within past 10 days. Louis Brewer MD CHEMISTRY ORDERABLES Fin al Result [facility] [address] [place] [address] from Last 3 Months or Most Recently Relevant to Health Maintenance Insurance [place] [address] Advance Directives For more information, please contact: [phone] * Full Code (Latest Code Status on File) Date Activated Date Inactivated Comments 07/31/2017 9:00 AM 07/31/2017 3:29 PM Care Teams Frame Coverer Relationship Specialty Start Date End Date Erich Ball MD [address] [place] [address] [place] [id number] PCP - General Family Medicine 05/15/17 Louis Brewer MD [address] [place] [address] [place] [address] Consulting Physician Internal Medicine - Clinical Cardiac Electrophysiology 05/18/17
[2025-01-24 15:25] LABS: Troponin I < 0.01 ng/ml (0.00-0.034)
--- NOTE | 2025-01-24 15:27 | CT_ITS ---
FINAL REPORT CLINICAL HISTORY: L vertigo FINDINGS: CT NECK ANGIO, WITHOUT AND WITH CONTRAST TECHNIQUE: Thin section axial CT with contrast with multiplanar 3D MIP reconstruction. NASCET criteria and technique was utilized during interpretation. Aortic arch: Arch shows no significant narrowing. Great vessel origins are widely patent. Right carotid: No significant stenosis is seen of the cervical common or internal carotid artery. Left carotid: No significant stenosis is seen of the cervical common or internal carotid artery. Vertebrals: The vertebral arteries are codominant. No significant stenosis is present. IMPRESSION: No significant stenosis of the cervical carotid arteries This study was performed using automated techniques to achieve radiation exposure as low as reasonably Reviewed, Interpreted and Dictated by Mandeep Hays MD Transcribed by Ifeoma Henderson Authenticated and [facility]
--- NOTE | 2025-01-24 15:27 | CT_ITS ---
FINAL REPORT CLINICAL HISTORY: L vertigo FINDINGS: CTA HEAD TECHNIQUE: Thin section axial CT with contrast with 3D MIP reconstruction This study was performed with techniques to keep radiation doses as low as reasonably achievable, (ALARA). Individualized dose reduction techniques using automated exposure control or adjustment of mA and/or kV according to the patient''s size were employed. No aneurysm is seen. Major intracranial vessels are patent without significant stenosis. . IMPRESSION: Unremarkable This study was performed using automated techniques to achieve radiation exposure as low as reasonably achievable Reviewed, Interpreted and Dictated by Mandeep Hays MD Transcribed by Ifeoma Henderson Authenticated and [facility]
--- NOTE | 2025-01-24 15:27 | CT_ITS ---
FINAL REPORT TECHNIQUE: Noncontrast exam This study was performed with techniques to keep radiation doses as low as reasonably achievable, (ALARA). Individualized dose reduction techniques using automated exposure control or adjustment of mA and/or kV according to the patient''s size were employed. CLINICAL HISTORY: L vertigo FINDINGS: No abnormal density is seen. Ventricles are normal. There is no hemorrhage. No mass effect is seen. Bone windows show no evidence of fracture. IMPRESSION: No acute findings Reviewed, Interpreted and Dictated by Mandeep Hays MD Transcribed by Ifeoma Henderson Authenticated and [facility]
[2025-01-24 15:30] VITALS: BP 142/76; PULSE 63; RESP 14; O2SAT 97
--- NOTE | 2025-01-24 15:37 | ED_ITS ---
Discharge Plan Disposition Patient Disposition: Home, Self-Care Prescriptions Prescriptions: New meclizine 25 mg tablet 25 mg PO TID PRN (Reason: vertigo) Qty: 21 0RF ondansetron 4 mg tablet,disintegrating 4 mg PO Q8H PRN (Reason: nausea and vomiting) 4 Days Qty: 21 0RF Rx Instructions: Only take this if you meclizine is not helping, do not combine it with meclizine No Action allopurinol 300 mg tablet 150 mg PO QDAY fenofibrate nanocrystallized 145 mg tablet 145 mg PO QDAY canagliflozin-metformin [Invokamet] 150-1,000 mg tablet 1 tab PO ONCE pantoprazole [Protonix] 40 mg tablet,delayed release (DR/EC) 20 mg PO QDAY icosapent ethyl 1 gram capsule 2 g PO BID Patient Comments: TAKE TWO CAPSULES BY MOUTH TWICE DAILY ezetimibe [Zetia] 10 mg tablet 10 mg PO DAILY clopidogrel 75 mg tablet See Rx Instructions .ROUTE .COMPLEX Qty: 90 3RF Dose Instruction: TAKE ONE TABLET BY MOUTH EVERY DAY Rx Instructions: TAKE ONE TABLET BY MOUTH EVERY DAY losartan 100 mg tablet See Rx Instructions .ROUTE .COMPLEX Qty: 90 3RF Dose Instruction: TAKE ONE TABLET BY MOUTH EVERY DAY Rx Instructions: TAKE ONE TABLET BY MOUTH EVERY DAY magnesium oxide 400 mg (241.3 mg magnesium) tablet See Rx Instructions .ROUTE .COMPLEX Qty: 90 5RF Dose Instruction: TAKE ONE TABLET BY MOUTH EVERY DAY Rx Instructions: TAKE ONE TABLET BY MOUTH EVERY DAY rosuvastatin 40 mg tablet See Rx Instructions .ROUTE .COMPLEX Qty: 90 3RF Dose Instruction: TAKE ONE TABLET BY MOUTH EVERY DAY Rx Instructions: TAKE ONE TABLET BY MOUTH EVERY DAY diltiazem HCl 180 mg capsule,extended release 24hr See Rx Instructions .ROUTE .COMPLEX Qty: 180 1RF Dose Instruction: TAKE ONE CAPSULE BY MOUTH TWICE DAILY Rx Instructions: TAKE ONE CAPSULE BY MOUTH TWICE DAILY Referrals Follow up/Referrals: Erich Ball MD [Primary Care Provider, Medical] - See instructions Activity Restrictions/Add. Instructions Additional Instructions/Restrictions: At this time it was felt you are safe to be discharged home. If new or worsening symptoms please do not hesitate to return the emergency department. I have prescribed you meclizine for your vertigo, please take it as prescribed and if it does not work quit taking it and take ondansetron as prescribed, do not take them at the same time. The symptoms can last for 1 to 2 weeks, please follow-up with your family doctor within the next week as you are able to ensure things are headed in the right direction. Clinical Impressions Clinical Impression: Heat exhaustion, Benign paroxysmal positional vertigo Instructions Patient Instructions: DI for Diarrhea and Traveler's Diarrhea -- Adult, DI for Diarrhea and Traveler's Diarrhea -- Child, DI for Nausea -- Adult, DI for Nausea -- Child Print Language Print Language: Japanese Discharge ED Provider: Deepak Stearns General Adult HPI <Enrique Reilly MD - Last Filed: 01/24/25 17:50> General Chief complaint: Nausea/Vomiting/Diarrhea Stated complaint: nausea dizziness Time Seen by Provider: 01/24/25 14:54 Related Data Home Medications ?Medication ?Instructions ?Recorded ?Confirmed allopurinol 300 mg tablet 150 mg PO QDAY gout 08/31/17 12/27/24 canagliflozin 150 mg-metformin 1 tab PO ONCE Diabetes 08/31/17 12/27/24 1,000 mg tablet (Invokamet) Held on 05/04/23. Instructions: Resume on 05/07/23. fenofibrate nanocrystallized 145 145 mg PO QDAY Choles terol 08/31/17 12/27/24 mg tablet icosapent ethyl 1 gram capsule 2 g PO BID Cholesterol 08/15/20 12/27/24 pantoprazole 40 mg tablet,delayed 20 mg PO QDAY stomac h 10/02/22 12/27/24 release (Protonix) ezetimibe 10 mg tablet (Zetia) 10 mg PO DAILY 05/18/23 12/27/24 Previous Rx's ?Medication ?Instructions ?Recorded clopidogrel 75 mg tablet See Rx Instructions .Route 0 10/05/23 .COMPLEX #90 tabs losartan 100 mg tablet See Rx Instructions .Route 0 10/05/23 .COMPLEX #90 tabs magnesium oxide 400 mg (241.3 mg See Rx Instructions . Route 02/09/24 magnesium) tablet .COMPLEX #90 tabs rosuvastatin 40 mg tablet See Rx Instructions .Route 1 .COMPLEX #90 tabs diltiazem HCl 180 mg See Rx Instructions .Route 0 09/21/24 capsule,extended release 24 hr .COMPLEX #180 caps meclizine 25 mg tablet 25 mg PO TID PRN vertigo #21 tabs 01/24/25 ondansetron 4 mg disintegrating 4 mg PO Q8H PRN nausea and 01/24/25 tablet vomiting 4 days #21 tabs Allergies Allergy/AdvReac Type Severity Reaction Status Date / Time rivaroxaban (From Xarelto) Allergy bleeding Verified 12/27/24 08:58 atorvastatin (From Lipitor) AdvReac Severe muscle Verified 12/27/24 08:58 pain,aches <Deepak Stearns MD - Last Filed: 01/24/25 15:43> General Mode of Arrival: Ambulatory Source of Information: Patient and Spouse Description of Symptoms (Recalled from ER Triage Doc. by RN): Pt presents to the ED for evaluation of heat exposure. PT stated he was out most of the day and came in for lunch. s/s started 45 minutes ago. PT stated he has been having dizziness and claimed he has had 12 episodes of vomiting. Denies SOA. Denies blood thinners. Pt stated he had a heat stroke in 2017. Denies COPD. History of Present Illness HPI narrative: Please note that above description of symptoms, in this electronic medical record under categorization of recalled from ER triage doctor by RN are reflective of an initial nursing assessment, however, is not reflective of my full history and physical exam that was personally taken and clarified. Consequentially, this preceding description of symptoms, which may include the patient's categorized chief complaint in the EMR, do not reflect my personal clinical impression, and the ultimate description of history of present illness and patient stated complaints should be deferred to this section of the note. Unless stated otherwise or congruent with this section of the note, additional signs, symptoms, or incongruence should be interpreted as inaccurate with my clinical impression. PFSH <Enrique Reilly MD - Last Filed: 01/24/25 17:50> PFSH Medical History Abnormal stress test Paroxysmal A-fib Palpitations Surgical History History of colonoscopy Social History Smoking Status: Never smoker alcohol intake: current alcohol intake frequency: holidays/special occasions only substance use type: denies use current occupational status: employed Travel in the last 8 weeks?: Inside the [place] Have you lived/traveled outside [place] in past 30 days?: No Contact w/someone who lives/traveled outside US past 30 days?: No Exposure to someone with infectious disease in past 14 days?: No Do you have a fever (greater than 100.4 F or 38 C)?: No Have you tested positive for COVID-19?: No Exposed to someone with COVID-19 in past 14 days?: No Do you have a sore throat?: No Do you have a cough?: No Do you have any weakness?: No Do you have any diarrhea?: No Are you experiencing any unusual bleeding?: No Do you have any muscle aches/pain?: No Do you have any abdominal pain?: No Are you experiencing loss of taste or smell?: No <Deepak Stearns MD - Last Filed: 01/24/25 15:43> [facility] Disclaimer: The information contained in this section may have been updated after the patient was seen, as this information can be updated by other users. Other Medical History Have you received the Flu Vaccine for this season: No Have you received the Pneumonia Vaccine: Yes <Deepak Stearns MD - Last Filed: 01/24/25 15:43> ROS Obtained: Yes All systems reviewed & no additional complaints except as documented Physical Exam <Deepak Stearns MD - Last Filed: 01/24/25 15:43> General General appearance: alert Head Head exam: atraumatic and normocephalic Eye Eye exam: Present normal appearance, PERRL and EOMI Neck Neck exam: Present normal inspection, full ROM and trachea midline Respiratory Respiratory exam: Absent respiratory distress, wheezes, stridor, accessory muscle use or prolonged expiratory phase Cardiovascular Cardiovascular exam: Present other (Pulses equal symmetric in upper and lower extremities) Abdominal Exam Abdominal exam: Present soft; Absent distention, tenderness or pulsatile mass Extremities Exam Extremities exam: Absent edema Neurological Exam Neurological exam: Present alert, oriented X3 and CN II-XII intact; Absent motor sensory deficit Skin Skin exam: Present warm and dry; Absent diaphoresis or erythema Medical Decision Making <Enrique Reilly MD - Last Filed: 01/24/25 17:50> Vital Signs: 01/24/25 14:55 01/24/25 15:00 01/24/25 15:30 Temperature 98.4 F Temperature Source Oral Pulse Rate 60 63 Pulse Rate [Right] 59 L Respiratory Rate 18 15 14 Blood Pressure 145/69 H 142/76 H Blood Pressure [Right Arm] 160/75 H Blood Pressure Mean [Right Arm] 103 02 Sat by Pulse Oximetry 93 L 96 97 Lab Data Lab Results 01/24/25 14:53: WBC 7.2, RBC 4.58 L, Hgb 14.4, Hct 42.2, MCV 92.1, MCH 31.4 H, MCHC 34.1, RDW 12.5, Plt Count 230, MPV 9.4, Neut % (Auto) 56.5, Lymph % (Auto) 33.2, [place] % (Auto) 6.0, Eos % (Auto) 3.5, Baso % (Auto) 0.7, Neut # (Auto) 4.1, Lymph # (Auto) 2.4, [place] # (Auto) 0.4, Eos # (Auto) 0.3, Baso # (Auto) 0.1, Sodium 139, Potassium 4.2, Chloride 104, Carbon Dioxide 23, Anion Gap 16.2 H, B UN 37 H, Creatinine 1.30 H, Estimated Creat Clear 63, Estimated GFR 54 L, Est GFR ( Amer) 66, Glucose 226 H, Calcium 10.0, Total Bilirubin 0.8, AST 39, ALT 33, Alkaline Phosphatase 58, Total Creatine Kinase 142, Troponin I < 0.01, Total Protein 7.9, Albumin 4.6, Globulin 3.3 H, Albumin/Globulin Ratio 1.4, HCV Ab KATLYN w/Rflx PCR Qn Negative, HIV Ag/Ab Combo Qual Negative 01/24/25 14:53 01/24/25 14:53 Orders (Tests/Meds): ED MEDICATIONS Generic Name Dose Route Start Last Admin Trade Name Freq PRN Reason Stop Dose Admin Meclizine HCl 25 mg 01/24/25 17:44 Meclizine 25mg Tablet PO 01/24/25 17:45 ONCE ONE Discontinued Medications Generic Name Dose Route Start Last Admin Trade Name Freq PRN Reason Stop Dose Admin Lactated Ringer's 1,000 mls @ 999 mls/hr 01/24/25 14:54 01/24/25 15:06 Lactated Ringer's 1000 Ml Bag IV 01/24/25 15:54 999 mls/hr .Q1H1M ONE Administration Iopamidol 80 ml 01/24/25 15:55 01/24/25 16:00 Iopamidol-370 (76%);100ml Bottle IV 01/24/25 15:56 80 ml ONCE ONE Administration Ondansetron HCl 4 mg 01/24/25 14:54 01/24/25 15:05 Ondansetron 4mg/2ml Vial IV 01/24/25 14:55 4 mg ONCE ONE Administration Sodium Chloride 10 ml 01/24/25 15:55 01/24/25 16:00 Sodium Chloride 0.9% 10ml Syr (Rad Only) IV 01/24/25 15:56 10 ml ONCE ONE Administration Sodium Chloride 50 ml 01/24/25 15:55 01/24/25 16:00 0.9 % Sodium Chloride 50 Ml Vial IV 01/24/25 15:56 50 ml ONCE ONE Administration ORDERS Category Date Time Status CT angio head Stat Cat Scan 01/24/25 15:[address] angio neck Stat Cat Scan 01/24/25 15:[address] head/brain wo con Stat Cat Scan 01/24/25 15:27 Completed CBC w/Auto Diff [Complete Blood Count Auto Diff] Stat Lab 01/24/25 14:53 Completed CK [Creatine Kinase] Stat Lab 01/24/25 14:53 Completed CMP [Comprehensive Metabolic Panel] Stat Lab 01/24/25 14:53 Completed HIV Combo Stat Lab 01/24/25 14:53 Completed Hepatitis C Ab Qual. W/ RFX Stat Lab 01/24/25 14:53 Completed Trop I [Troponin I] Stat Lab 01/24/25 14:53 Completed Troponin I Q3H Lab 01/24/25 18:00 Ordered Troponin I Q3H Lab 01/24/25 21:00 Ordered Medical Decision Narrative: 69-year-old male history of hypertension, hyperlipidemia, CAD status post stenting, A-fib status post ablation not currently on anticoagulation presenting with concern for heatstroke. He states that he had heatstroke in the past. Today, he was working on the farm all day in the heat. States that he was staying plenty hydrated. Denies any confusion, altered mental status, strokelike symptoms, but states after working in the sun he got to his truck, was backing up and became woozy. Came in for further evaluation given history. No current symptoms. History obtained with patient and . On arrival, very clinically well. Alert and oriented, neurologically intact. Cardiopulmonary exam normal. Differential includes heat exhaustion, metabolic abnormality, dehydration, among others. Workup initiated. EG independently interpreted. Sinus rhythm. Old Q waves in septal leads. Ventricular rate 64, [place] 160, QRS 120, QTc 413 with no acute ischemic changes. Patient given fluids and Zofran. Prior to return of workup, care handed off to oncoming physician. Enrique Reilly: Upon assumption care patient is hemodynamically stable. On my exam patient has positive Tong-Hallpike after he was complaining he was dizzy with his head turned to the left. He has torsional nystagmus on the left which is consistent with benign paroxysmal positional vertigo however noncontrasted CT scan of the head and CTA of the head and neck will also be obtained. Hematologic labs reviewed by me and are nonactionable. I suspect the patient had heat exhaustion and also has superimposed BPPV. Noncontrasted CT scan of the head and neck nonactionable. Upon repeat evaluation patient was dizzy but able to ambulate at bedside. Given this and his classic physical exam findings I suspect BPPV and patient is appropriate for outpatient management at this time shared decision making discussion was had prior to discharge patient will be given meclizine and wishes to be discharged with meclizine and a antiemetic as a backup should meclizine fail, he has had vertigo before and meclizine did not modify his symptoms in a meaningful way but is willing to try it again. Patient is appropriate for discharge at this time was given return precautions verbalized understanding. Splitter Machine disclaimer Much of this encounter note is an electronic cigarette paper tester spoken language to printed text. Electronic cigarette paper tester of the spoken language may permit errors. Although I have reviewed the note, some errors may still exist. <Deepak Stearns MD - Last Filed: 01/24/25 15:43> Medical Records Medical records reviewed: Yes I reviewed the patient's medical records. Screening: Per USPSTF and CDC recommendations, given the prevalence of disease in our region, it is our hospital?s policy to screen for HIV and viral Hepatitis for all patients aged 18 and over and those with ongoing risk factors. Gus Inquiry Pt receiving controlled substance: No Gus was queried for this patient: No Vital Signs: 01/24/25 14:55 01/24/25 15:00 01/24/25 15:30 Temperature 98.4 F Temperature Source Oral Pulse Rate 60 63 Pulse Rate [Right] 59 L Respiratory Rate 18 15 14 Blood Pressure 145/69 H 142/76 H Blood Pressure [Right Arm] 160/75 H Blood Pressure Mean [Right Arm] 103 02 Sat by Pulse Oximetry 93 L 96 97 Lab Data Lab Results 01/24/25 14:53: WBC 7.2, RBC 4.58 L, Hgb 14.4, Hct 42.2, MCV 92.1, MCH 31.4 H, MCHC 34.1, RDW 12.5, Plt Count 230, MPV 9.4, Neut % (Auto) 56.5, Lymph % (Auto) 33.2, [place] % (Auto) 6.0, Eos % (Auto) 3.5, Baso % (Auto) 0.7, Neut # (Auto) 4.1, Lymph # (Auto) 2.4, [place] # (Auto) 0.4, Eos # (Auto) 0.3, Baso # (Auto) 0.1, Sodium 139, Potassium 4.2, Chloride 104, Carbon Dioxide 23, Anion Gap 16.2 H, B UN 37 H, Creatinine 1.30 H, Estimated Creat Clear 63, Estimated GFR 54 L, Est GFR ( Amer) 66, Glucose 226 H, Calcium 10.0, Total Bilirubin 0.8, AST 39, ALT 33, Alkaline Phosphatase 58, Total Creatine Kinase 142, Troponin I < 0.01, Total Protein 7.9, Albumin 4.6, Globulin 3.3 H, Albumin/Globulin Ratio 1.4, HCV Ab KATLYN w/Rflx PCR Qn Negative, HIV Ag/Ab Combo Qual Negative Orders (Tests/Meds): ED MEDICATIONS Generic Name Dose Route Start Last Admin Trade Name Freq PRN Reason Stop Dose Admin Meclizine HCl 25 mg 01/24/25 17:44 Meclizine 25mg Tablet PO 01/24/25 17:45 ONCE ONE Discontinued Medications Generic Name Dose Route Start Last Admin Trade Name Freq PRN Reason Stop Dose Admin Lactated Ringer's 1,000 mls @ 999 mls/hr 01/24/25 14:54 01/24/25 15:06 Lactated Ringer's 1000 Ml Bag IV 01/24/25 15:54 999 mls/hr .Q1H1M ONE Administration Iopamidol 80 ml 01/24/25 15:55 01/24/25 16:00 Iopamidol-370 (76%);100ml Bottle IV 01/24/25 15:56 80 ml ONCE ONE Administration Ondansetron HCl 4 mg 01/24/25 14:54 01/24/25 15:05 Ondansetron 4mg/2ml Vial IV 01/24/25 14:55 4 mg ONCE ONE Administration Sodium Chloride 10 ml 01/24/25 15:55 01/24/25 16:00 Sodium Chloride 0.9% 10ml Syr (Rad Only) IV 01/24/25 15:56 10 ml ONCE ONE Administration Sodium Chloride 50 ml 01/24/25 15:55 01/24/25 16:00 0.9 % Sodium Chloride 50 Ml Vial IV 01/24/25 15:56 50 ml ONCE ONE Administration ORDERS Category Date Time Status CT angio head Stat Cat Scan 01/24/25 15:[address] angio neck Stat Cat Scan 01/24/25 15:[address] head/brain wo con Stat Cat Scan 01/24/25 15:27 Completed CBC w/Auto Diff [Complete Blood Count Auto Diff] Stat Lab 01/24/25 14:53 Completed CK [Creatine Kinase] Stat Lab 01/24/25 14:53 Completed CMP [Comprehensive Metabolic Panel] Stat Lab 01/24/25 14:53 Completed HIV Combo Stat Lab 01/24/25 14:53 Completed Hepatitis C Ab Qual. W/ RFX Stat Lab 01/24/25 14:53 Completed Trop I [Troponin I] Stat Lab 01/24/25 14:53 Completed Troponin I Q3H Lab 01/24/25 18:00 Ordered Troponin I Q3H Lab 01/24/25 21:00 Ordered Medical Decision Narrative: 69-year-old male history of hypertension, hyperlipidemia, CAD status post stenting, A-fib status post ablation not currently on anticoagulation presenting with concern for heatstroke. He states that he had heatstroke in the past. Today, he was working on the farm all day in the heat. States that he was staying plenty hydrated. Denies any confusion, altered mental status, strokelike symptoms, but states after working in the sun he got to his truck, was backing up and became woozy. Came in for further evaluation given history. No current symptoms. History obtained with patient and . On arrival, very clinically well. Alert and oriented, neurologically intact. Cardiopulmonary exam normal. Differential includes heat exhaustion, metabolic abnormality, dehydration, among others. Workup initiated. EG independently interpreted. Sinus rhythm. Old Q waves in septal leads. Ventricular rate 64, [place] 160, QRS 120, QTc 413 with no acute ischemic changes. Patient given fluids and Zofran. Prior to return of workup, care handed off to oncoming physician. Splitter Machine disclaimer Much of this encounter note is an electronic cigarette paper tester spoken language to printed text. Electronic cigarette paper tester of the spoken language may permit errors. Although I have reviewed the note, some errors may still exist. Critical Care <Deepak Stearns MD - Last Filed: 01/24/25 15:43> Critical Care Time Critical Care Time: No
[2025-01-24 16:00] LABS: HIV Combo NEGATIVE (Negative)
[2025-01-24] MEDS: SODIUM CHLORIDE 0.9% 10ML SYR (RAD ONLY) 10 ML IV (16:00)
[2025-01-24] MEDS: IOPAMIDOL-370 (76%);100ML BOTTLE 80 ML IV (16:00)
[2025-01-24] MEDS: 0.9 % SODIUM CHLORIDE 50 ML VIAL IV (16:00)
[2025-01-24 16:08] LABS: Hepatitis C Ab Qual. W/ RFX NEGATIVE (Negative)
--- NOTE | 2025-01-24 17:36 | PC.NURSE ---
followup on PO challenge, PT currently vomiting in emesis bag.
[2025-01-24] MEDS: MECLIZINE 25MG TABLET 25 MG PO (17:52)
[2025-01-24 18:00] VITALS: BP 167/87; PULSE 69; RESP 18; TEMP 36.9; O2SAT 96
== END 2025-01-24 18:01 | disposition home or self-care (01) ==
PROVIDERS: Emergency Provider Emergency Medicine; PCP Family Medicine
DX: T67.5XXA Heat exhaustion, unspecified, initial encounter (principal); H81.10 Benign paroxysmal vertigo, unspecified ear; R11.2 Nausea with vomiting, unspecified
CPT/HCPCS: 70450; 70496; 70498; 80053; 82550; 84484; 85025; 86803; 87389; 93005; 96361; 96374; 99285; J2405; J7120; Q9967

== ENCOUNTER 2025-04-20 11:41 | Emergency (ER) | payer MEDICARE, OTHER, SELFPAY ==
[2025-04-20] VITALS (14 sets, daily range): BP systolic 115–160; BP diastolic 70–85; PULSE 53–89; RESP 14–19; TEMP 36.5; O2SAT 94–98; BMI 23.1
--- NOTE | 2025-04-20 13:08 | CT_ITS ---
FINAL REPORT TECHNIQUE: Noncontrast exam This study was performed with techniques to keep radiation doses as low as reasonably achievable, (ALARA). Individualized dose reduction techniques using automated exposure control or adjustment of mA and/or kV according to the patient''s size were employed. CLINICAL HISTORY: fall, head trauma, dizziness FINDINGS: No abnormal density is seen. Ventricles are normal. There is no hemorrhage. No mass effect is seen. Bone windows show no evidence of fracture. IMPRESSION: No acute findings Reviewed, Interpreted and Dictated by Mandeep Hays MD Transcribed by Rachel Avendano Authenticated and [facility]
--- NOTE | 2025-04-20 13:08 | ED_ITS ---
<Statement entered by Carri Mendiola DO - 04/23/25 00:58> I was consulted by the JONI, and we discussed the complexity of problems being addressed. I approve the treatment and management plan for this patient's care in the emergency department, thus performing a substantial portion of the medical decision making. Carri Mendiola DO Discharge Plan Disposition Patient Disposition: Home, Self-Care Condition: Good Prescriptions Prescriptions: No Action allopurinol 300 mg tablet 150 mg PO QDAY fenofibrate nanocrystallized 145 mg tablet 145 mg PO QDAY canagliflozin-metformin [Invokamet] 150-1,000 mg tablet 1 tab PO ONCE pantoprazole [Protonix] 40 mg tablet,delayed release (DR/EC) 20 mg PO QDAY icosapent ethyl 1 gram capsule 2 g PO BID Patient Comments: TAKE TWO CAPSULES BY MOUTH TWICE DAILY ezetimibe [Zetia] 10 mg tablet 10 mg PO DAILY clopidogrel 75 mg tablet See Rx Instructions .ROUTE .COMPLEX Qty: 90 3RF Dose Instruction: TAKE ONE TABLET BY MOUTH EVERY DAY Rx Instructions: TAKE ONE TABLET BY MOUTH EVERY DAY losartan 100 mg tablet See Rx Instructions .ROUTE .COMPLEX Qty: 90 3RF Dose Instruction: TAKE ONE TABLET BY MOUTH EVERY DAY Rx Instructions: TAKE ONE TABLET BY MOUTH EVERY DAY magnesium oxide 400 mg (241.3 mg magnesium) tablet See Rx Instructions .ROUTE .COMPLEX Qty: 90 5RF Dose Instruction: TAKE ONE TABLET BY MOUTH EVERY DAY Rx Instructions: TAKE ONE TABLET BY MOUTH EVERY DAY rosuvastatin 40 mg tablet See Rx Instructions .ROUTE .COMPLEX Qty: 90 3RF Dose Instruction: TAKE ONE TABLET BY MOUTH EVERY DAY Rx Instructions: TAKE ONE TABLET BY MOUTH EVERY DAY diltiazem HCl 180 mg capsule,extended release 24hr See Rx Instructions .ROUTE .COMPLEX Qty: 180 1RF Dose Instruction: TAKE ONE CAPSULE BY MOUTH TWICE DAILY Rx Instructions: TAKE ONE CAPSULE BY MOUTH TWICE DAILY meclizine 25 mg tablet 25 mg PO TID PRN (Reason: vertigo) Qty: 21 0RF ondansetron 4 mg tablet,disintegrating 4 mg PO Q8H PRN (Reason: nausea and vomiting) 4 Days Qty: 21 0RF Rx Instructions: Only take this if you meclizine is not helping, do not combine it with meclizine Referrals Follow up/Referrals: Erich Ball MD [Primary Care Provider, Medical] - See instructions Activity Restrictions/Add. Instructions Additional Instructions/Restrictions: Please return to the emergency department with any worsening signs or symptoms, please follow-up with your PCP in the upcoming days/week, I recommend ibuprofen and Tylenol as needed for symptomatic relief. Clinical Impressions Clinical Impression: Hematoma of scalp, Fall, CHI (closed head injury) Instructions Patient Instructions: DI for Closed Head Injury, Bruises (Alternative Therapy), DI for Postconcussion Syndrome Print Language Print Language: Gambian Discharge ED Provider: Enrique Reilly General Adult HPI <JAMEY Ulloa - Last Filed: 04/20/25 16:11> General Chief complaint: Fall Stated complaint: AO 1115am 04/21/25 Fell Backwards Hit Head Time Seen by Provider: 04/20/25 13:08 Mode of Arrival: Ambulatory Source of Information: Patient Description of Symptoms (Recalled from ER Triage Doc. by RN): pt reports at approximately 1115 he stumbled and fell backwards hitting the posterior head on concrete. He has a very small lac to the posterior head. Bleeding is controlled at this time. pt denies LOC. However, he reports seeing stars initially and is now back to his baseline. Pt A&O X4. pt takes 81mg ASA daily but no blood thinners. pt reports he has had ongoing vertigo for a few years but is unable to tolerate meclizine. pt reports takinig 600mg ibuprofen about 1hr ago. His pain is now 1/10. pt also reports generalized aching from the fall but states he only wants worked up for his head. pt denies loss of bowel/bladder since fall. History of Present Illness HPI narrative: 69-year-old male presents the emergency department accompanied by his for a closed head injury, patient states he was working out in his barn around 1115, when he stumbled , fell backwards striking his posterior occipital scalp, on concrete, denies any LOC, did state that he saw some stars , endorsed numbness and tingling throughout his whole body, was able to ambulate after the injury, patient has any presyncopal or syncopal event, patient is on antiplatelet therapy with aspirin, denies any anticoagulant use, patient states he has what sound like BPV, but denies any vertiginous symptoms at this time, describes it as he got tripped up on something on the ground , sustained a small laceration/abrasion to the posterior occipital scalp, no active bleeding at this time, no fever no chills no chest pain no shortness of breath no nausea vomit no constipation or diarrhea, urinary cosmetology, patient has any alcohol tobacco or drug use, other past medical history is consistent with paroxysmal atrial fibrillation, CAD, multiple stent placements, follows with cardiology, BPPV, ZANDER, hypertension, hyperlipidemia. Initial triage vitals are unremarkable. Of note, patient took 60 mg ibuprofen prior to arrival, states his pain is a 1 out of 10, denies any other upper or lower extremity injury, denies any saddle anesthesia, denies urinary bladder or bowel dysfunction, no radicular type otology, no numbness or tingling, no back pain, no mid back pain. Please note that above description of symptoms, in this electronic medical record under categorization of recalled from ER triage doctor by RN are reflective of an initial nursing assessment, however, is not reflective of my full history and physical exam that was personally taken and clarified. Consequentially, this preceding description of symptoms, which may include the patient's categorized chief complaint in the EMR, do not reflect my personal clinical impression, and the ultimate description of history of present illness and patient stated complaints should be deferred to this section of the note. Unless stated otherwise or congruent with this section of the note, additional signs, symptoms, or incongruence should be interpreted as inaccurate with my clinical impression. Onset (ago): hour(s) Related Data Home Medications ?Medication ?Instructions ?Recorded ?Confirmed allopurinol 300 mg tablet 150 mg PO QDAY gout 08/31/17 12/27/24 canagliflozin 150 mg-metformin 1 tab PO ONCE Diabetes 08/31/17 12/27/24 1,000 mg tablet (Invokamet) Held on 05/04/23. Instructions: Resume on 05/07/23. fenofibrate nanocrystallized 145 145 mg PO QDAY Choles terol 08/31/17 12/27/24 mg tablet icosapent ethyl 1 gram capsule 2 g PO BID Cholesterol 08/15/20 12/27/24 pantoprazole 40 mg tablet,delayed 20 mg PO QDAY stomac h 10/02/22 12/27/24 release (Protonix) ezetimibe 10 mg tablet (Zetia) 10 mg PO DAILY 05/18/23 12/27/24 Previous Rx's ?Medication ?Instructions ?Recorded clopidogrel 75 mg tablet See Rx Instructions .Route 0 10/05/23 .COMPLEX #90 tabs losartan 100 mg tablet See Rx Instructions .Route 0 10/05/23 .COMPLEX #90 tabs magnesium oxide 400 mg (241.3 mg See Rx Instructions . Route 02/09/24 magnesium) tablet .COMPLEX #90 tabs rosuvastatin 40 mg tablet See Rx Instructions .Route 1 .COMPLEX #90 tabs meclizine 25 mg tablet 25 mg PO TID PRN vertigo #21 tabs 01/24/25 ondansetron 4 mg disintegrating 4 mg PO Q8H PRN nausea and 01/24/25 tablet vomiting 4 days #21 tabs diltiazem HCl 180 mg See Rx Instructions .Route 0 04/06/25 capsule,extended release 24 hr .COMPLEX #180 caps Allergies Allergy/AdvReac Type Severity Reaction Status Date / Time rivaroxaban (From Xarelto) Allergy bleeding Verified 04/20/25 13:00 atorvastatin (From Lipitor) AdvReac Severe muscle Verified 04/20/25 13:00 pain,aches [facility] <JAMEY Ulloa - Last Filed: 04/20/25 16:11> [facility] Disclaimer: The information contained in this section may have been updated after the patient was seen, as this information can be updated by other users. Medical History Abnormal stress test Paroxysmal A-fib Palpitations Surgical History History of colonoscopy Social History Smoking Status: Former smoker alcohol intake: current alcohol intake frequency: holidays/special occasions only substance use type: denies use current occupational status: employed Travel in the last 8 weeks?: Inside the [place] Have you lived/traveled outside US in past 30 days?: No Contact w/someone who lives/traveled outside US past 30 days?: No Exposure to someone with infectious disease in past 14 days?: No Do you have a fever (greater than 100.4 F or 38 C)?: No Have you tested positive for COVID-19?: No Exposed to someone with COVID-19 in past 14 days?: No Do you have a sore throat?: No Do you have a cough?: No Do you have any weakness?: No Do you have any diarrhea?: No Are you experiencing any unusual bleeding?: No Do you have any muscle aches/pain?: No Do you have any abdominal pain?: No Are you experiencing loss of taste or smell?: No Other Medical History Have you received the Flu Vaccine for this season: No Have you received the Pneumonia Vaccine: Yes <JAMEY Ulloa - Last Filed: 04/20/25 16:11> ROS Obtained: Yes All systems reviewed & no additional complaints except as documented Physical Exam <JAMEY Ulloa - Last Filed: 04/20/25 16:11> General General appearance: alert and in no apparent distress Head Head exam: atraumatic, normocephalic and other (Small less than 1 cm laceration/abrasion to the posterior cervical scalp, with no active bleeding at this time) Eye Eye exam: Present PERRL and EOMI ENT ENT exam: Present mucous membranes moist Neck Neck exam: Present normal inspection Chest Chest inspection: Present normal inspection and symmetric chest wall rise; Absent tenderness Respiratory Respiratory exam: Present normal lung sounds bilaterally; Absent respiratory distress, wheezes or stridor Cardiovascular Cardiovascular exam: Present regular rate and normal rhythm Abdominal Exam Abdominal exam: Present soft; Absent tenderness, guarding, rebound or rigidity Extremities Exam Extremities exam: Present normal inspection and full ROM; Absent tenderness Back Exam Back exam: Present normal inspection and full ROM; Absent tenderness, paraspinal tenderness or vertebral tenderness Neurological Exam Neurological exam: Present alert, oriented X3, normal gait and other (Moves extremities to command, GCS of 15, 5 out of 5 strength in bilateral lower and upper extremities) Psychiatric Psychiatric exam: Present normal affect Skin Skin exam: Present warm and dry Medical Decision Making <JAMEY Ulloa - Last Filed: 04/20/25 16:11> Medical Records Medical records reviewed: Yes I reviewed the patient's medical records. Screening: Per USPSTF and CDC recommendations, given the prevalence of disease in our region, it is our hospital?s policy to screen for HIV and viral Hepatitis for all patients aged 18 and over and those with ongoing risk factors. Gus Inquiry Pt receiving controlled substance: No Gus was queried for this patient: No Vital Signs: 04/20/25 12:50 04/20/25 13:13 04/20/25 13:14 Temperature 97.7 F Temperature Source Oral Pulse Rate 54 L Pulse Rate [Left] 63 Respiratory Rate 14 17 Blood Pressure Blood Pressure [Right Arm] 160/85 H Blood Pressure Mean Blood Pressure Mean [Right Arm] 110 Blood Pressure Source [Right Arm] Automatic Cuff Blood Pressure Position [Right Arm] Sitting 02 Sat by Pulse Oximetry 96 96 98 Oxygen Delivery Method Room Air Room Air Room Air 04/20/25 13:15 04/20/25 13:17 04/20/25 13:21 Temperature Temperature Source Pulse Rate 54 L 61 53 L Pulse Rate [Left] Respiratory Rate 19 17 19 Blood Pressure 130/74 143/80 H Blood Pressure [Right Arm] Blood Pressure Mean 92 101 Blood Pressure Mean [Right Arm] Blood Pressure Source [Right Arm] Blood Pressure Position [Right Arm] 02 Sat by Pulse Oximetry 98 96 96 Oxygen Delivery Method Room Air Room Air Room Air 04/20/25 13:45 04/20/25 14:13 04/20/25 14:15 Temperature Temperature Source Pulse Rate 68 65 57 L Pulse Rate [Left] Respiratory Rate 17 17 19 Blood Pressure 115/83 148/70 H 153/82 H Blood Pressure [Right Arm] Blood Pressure Mean 97 96 105 Blood Pressure Mean [Right Arm] Blood Pressure Source [Right Arm] Blood Pressure Position [Right Arm] 02 Sat by Pulse Oximetry 97 94 L 96 Oxygen Delivery Method Room Air Room Air Room Air 04/20/25 14:30 04/20/25 15:00 04/20/25 15:31 Temperature Temperature Source Pulse Rate 88 78 Pulse Rate [Left] Respiratory Rate 17 17 Blood Pressure 144/76 H 149/73 H 144/74 H Blood Pressure [Right Arm] Blood Pressure Mean 101 98 97 Blood Pressure Mean [Right Arm] Blood Pressure Source [Right Arm] Blood Pressure Position [Right Arm] 02 Sat by Pulse Oximetry 98 98 Oxygen Delivery Method Room Air Room Air 04/20/25 16:00 Temperature Temperature Source Pulse Rate Pulse Rate [Left] Respiratory Rate Blood Pressure 150/84 H Blood Pressure [Right Arm] Blood Pressure Mean 106 Blood Pressure Mean [Right Arm] Blood Pressure Source [Right Arm] Blood Pressure Position [Right Arm] 02 Sat by Pulse Oximetry Oxygen Delivery Method Orders (Tests/Meds): ORDERS Category Date Time Status CT cervical spine wo con Stat Cat Scan 04/20/25 13:[address] head/brain wo con Stat Cat Scan 04/20/25 13:08 Completed Medical Decision Narrative: 69-year-old male presents to the emergency department with a closed head injury no LOC, not on any anticoagulants, differential diagnose include but not limited to, closed head injury, postconcussive syndrome, scalp hematoma, acute SDH, traumatic SAH, cervicalgia, C-spine fracture among others. I discussed this patient's case with the attending physician Obtain CT head without contrast, CT cervical spine without contrast, and EKG for further evaluation as characterization. I reviewed the patient's CT head without contrast, along the corresponding radiologic report, no acute findings. Enrique Reilly: I was consulted by the JONI, and we discussed the complexity of the problems being addressed. I approved the treatment and management plan for this patient's care in the emergency department, thus performing a substantive portion of the medical decision making. I agree with initial workup CT cervical spine read reevaluation pending at time of transition of care to the oncoming physician, Dr. Mendiola. Reviewed the patient's CT cervical spine without contrast on the corresponding radiologic report, no acute fracture or malalignment. I discussed these results with the patient family bedside, nursing staff was able to cleanse the patient's posterior scalp abrasion, no obvious laceration may be amicable to closure at this time, bleeding is controlled. Patient and family were given strict ED return precautions. Patient and family voiced understanding and agreement with current treatment plan/discharge plan. <Enrique Reilly MD - Last Filed: 04/20/25 15:23> Vital Signs: 04/20/25 12:50 04/20/25 13:13 04/20/25 13:14 Temperature 97.7 F Temperature Source Oral Pulse Rate 54 L Pulse Rate [Left] 63 Respiratory Rate 14 17 Blood Pressure Blood Pressure [Right Arm] 160/85 H Blood Pressure Mean Blood Pressure Mean [Right Arm] 110 Blood Pressure Source [Right Arm] Automatic Cuff Blood Pressure Position [Right Arm] Sitting 02 Sat by Pulse Oximetry 96 96 98 Oxygen Delivery Method Room Air Room Air Room Air 04/20/25 13:15 04/20/25 13:17 04/20/25 13:21 Temperature Temperature Source Pulse Rate 54 L 61 53 L Pulse Rate [Left] Respiratory Rate 19 17 19 Blood Pressure 130/74 143/80 H Blood Pressure [Right Arm] Blood Pressure Mean 92 101 Blood Pressure Mean [Right Arm] Blood Pressure Source [Right Arm] Blood Pressure Position [Right Arm] 02 Sat by Pulse Oximetry 98 96 96 Oxygen Delivery Method Room Air Room Air Room Air 04/20/25 13:45 04/20/25 14:13 04/20/25 14:15 Temperature Temperature Source Pulse Rate 68 65 57 L Pulse Rate [Left] Respiratory Rate 17 17 19 Blood Pressure 115/83 148/70 H 153/82 H Blood Pressure [Right Arm] Blood Pressure Mean 97 96 105 Blood Pressure Mean [Right Arm] Blood Pressure Source [Right Arm] Blood Pressure Position [Right Arm] 02 Sat by Pulse Oximetry 97 94 L 96 Oxygen Delivery Method Room Air Room Air Room Air 04/20/25 14:30 04/20/25 15:00 04/20/25 15:31 Temperature Temperature Source Pulse Rate 88 78 Pulse Rate [Left] Respiratory Rate 17 17 Blood Pressure 144/76 H 149/73 H 144/74 H Blood Pressure [Right Arm] Blood Pressure Mean 101 98 97 Blood Pressure Mean [Right Arm] Blood Pressure Source [Right Arm] Blood Pressure Position [Right Arm] 02 Sat by Pulse Oximetry 98 98 Oxygen Delivery Method Room Air Room Air 04/20/25 16:00 Temperature Temperature Source Pulse Rate Pulse Rate [Left] Respiratory Rate Blood Pressure 150/84 H Blood Pressure [Right Arm] Blood Pressure Mean 106 Blood Pressure Mean [Right Arm] Blood Pressure Source [Right Arm] Blood Pressure Position [Right Arm] 02 Sat by Pulse Oximetry Oxygen Delivery Method Orders (Tests/Meds): ORDERS Category Date Time Status CT cervical spine wo con Stat Cat Scan 04/20/25 13:[address] head/brain wo con Stat Cat Scan 04/20/25 13:08 Completed ECG Data Tracing #1: Independently inter by me rate is 52, rhythm is irregular, sinus bradycardia with sinus arrhythmia, no ST elevation in anatomical contiguous leads, QTc 390. Medical Decision Narrative: 69-year-old male presents to the emergency department with a closed head injury no LOC, not on any anticoagulants, differential diagnose include but not limited to, closed head injury, postconcussive syndrome, scalp hematoma, acute SDH, traumatic SAH, cervicalgia, C-spine fracture among others. I discussed this patient's case with the attending physician Obtain CT head without contrast, CT cervical spine without contrast, and EKG for further evaluation as characterization. I reviewed the patient's CT head without contrast, along the corresponding radiologic report, no acute findings. Enrique Reilly: I was consulted by the JONI, and we discussed the complexity of the problems being addressed. I approved the treatment and management plan for this patient's care in the emergency department, thus performing a substantive portion of the medical decision making. I agree with initial workup CT cervical spine read reevaluation pending at time of transition of care to the oncoming physician, Dr. Mendiola. Critical Care <Enrique Reilly MD - Last Filed: 04/20/25 15:23> Critical Care Time Critical Care Time: No
--- NOTE | 2025-04-20 13:08 | CT_ITS ---
FINAL REPORT TECHNIQUE: Thin section axial CT with sagittal reconstruction without contrast This study was performed with techniques to keep radiation doses as low as reasonably achievable, (ALARA). Individualized dose reduction techniques using automated exposure control or adjustment of mA and/or kV according to the patient''s size were employed. CLINICAL HISTORY: Fall, injury to back of head, dizziness COMPARISON: None FINDINGS: No fracture is seen. Alignment is normal. There is moderate diffuse degenerative disc change. IMPRESSION: No acute fracture or malalignment Reviewed, Interpreted and Dictated by Mandeep Hays MD Transcribed by Rachel Avendano Authenticated and [facility]
--- NOTE | 2025-04-20 13:15 | ECG_ITS ---
APPROVED REPORT Exam: Resting ECG HR:52 bpm ECG Measurements Heart Rate 52 AXES NH 188 P 57 QRSd 116 QRS 45 QT 409 T 20 QTc 390 Conclusion SINUS BRADYCARDIA WITH SINUS ARRHYTHMIA SEPTAL MYOCARDIAL INFARCTION , PROBABLY OLD [40+ ms Q WAVE IN V1/V2] ABNORMAL ECG Electronically signed by : DAVY MARROQUIN, 04/23/2025 08:35:56
--- OUTSIDE RECORDS SUMMARY | 2025-04-20 13:21 | XMS_ITS ---
Author Organization Unknown Medications Date Medication Dosage DosageUnit StartDate StopDate StopReason Active DoseQuantity DoseUnit Dispense DispenseUnit Refills NdcCode DrugCode PharmacyId IsPrescription MappedMedication Srcstatus Custom 04/06 00:00 :00 Ezetimibe 10 MG Tablet 1 90 0 [id number] 1 305 Start 04/06 00:00 :00 Ezetimibe 10 MG Tablet 0 90 1 [id number] 305 Stop 04/06 00:00 :00 Fenofibrate 145 mg Tablet 1 90 Tablet 0 [id number] 677 Start 04/06 00:00 :00 Fenofibrate 145 mg Tablet 0 90 Tablet 1 [id number] 677 Stop 02/17 00:00 :00 Icosapent Ethyl 1 GM Capsule 1 120 Capsule 2 [id number] 012 Start 02/17 00:00 :00 Icosapent Ethyl 1 GM Capsule 0 120 Capsule 2 [id number] Stop 04/06 00:00 :00 Losartan Potassium 100 MG Tablet 1 90 0 82 [id number] 410 Start 04/06 00:00 :00 Losartan Potassium 100 MG Tablet 0 90 1 82 [id number] 410 Stop 04/06 00:00 :00 Pantoprazol e Sodium 20 mg Tablet Delayed Release 1 90 Tablet 0 [id number] 990 Start 04/06 00:00 :00 Pantoprazol e Sodium 20 mg Tablet Delayed Release 0 90 Tablet 1 [id number] 990 Stop
--- OUTSIDE RECORDS SUMMARY | 2025-04-20 13:21 | XMS_ITS | Clinical Summary ---
Author Organization 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 Phone Erich Ball MD Primary Care Provider + [phone] Louis Brewer MD Unavailable [phone] Allergies No known active allergies Medications canagliflozin-me [...] Last Done Comments Wellness Exam Medicare 1956 Lipids 1963 Diabetic Eye Exam 1971 Kidney Health: uACR 1971 DTaP/TDaP/Td (1 - Tdap) 1972 Pneumococcal Vaccine 50+ (1 of 2 - PCV) 1972 Cologuard 1998 FIT 1998 Sigmoidoscopy 1998 Virtual Colonography 1998 Zoster (1 of 2) 2003 RSV or 60+ (1 - Ris k 60-74 years 1-dose series) 2013 Hemoglobin A1c 03/24/2018 09/24/2017 (Postponed) Kidney Health: eGFR 07/30/2018 07/30/2017 COVID-19 Vaccine (1 - 2023-2 5 season) 2025 Influenza Vaccine (#1) 2025 8 (Postponed) Colon Cancer Screening 09/24/2027 Colonoscopy 09/24/2027 [...] - 145 mmol/L 07/30/2017 6:51 AM EST [facility] Potassium 3.9 3.5 - 5.0 mmol/L 07/30/2017 6:51 AM EST [facility] Chloride 102 98 - 107 mmol/L 07/30/2017 6:51 AM EST [facility] Total CO2 22 22 - 29 mmol/L 07/30/2017 6:51 AM EST [facility] Anion Gap 15 7 - 16 mmol/L 07/30/2017 6:51 AM EST [facility] Calcium 9.0 8.8 - 10.2 mg/dL 07/30/2017 6:51 AM EST [facility] Glucose Lvl 147(H) 82 - 100 mg/dL 07/30/2017 6:51 AM EST [facility] BUN 16 8 - 23 mg/dL 07/30/2017 6:51 AM EST [facility] Creatinine 1.04 0.67 - 1.30 mg/dL 07/30/2017 6:51 AM EST [facility] GFR Afr Am 87 mL/min/1.7 3 m2 07/30/2017 6:51 AM EST [facility] GFR Non Afr Am 76 mL/min/1.7 3 m2 07/30/2017 6:51 AM EST [facility] Comment: GFR Afr Am and GFR [...] AM EST 07/30/2017 6:15 AM EST Narrative [facility] - 07/30/2017 6:51 AM EST Notify seam sewer if creatine is 1.5 or greater, and/or GFR <55, and/or potassium greater than or equal to 5.5 or less than or equal to 3.0. Do not repeat if done within past 10 days. Louis Brewer MD CHEMISTRY ORDERABLES Fin al Result [facility] [address] [place] [address] from Last 3 Months or Most Recently Relevant to Health Maintenance Insurance [place] [address] Advance Directives For more information, please contact: [phone] * Full Code (Latest Code Status on File) Date Activated Date Inactivated Comments 07/31/2017 9:00 AM 07/31/2017 3:29 PM Care Teams Factory Laborer Relationship Specialty Start Date End Date Erich Ball MD [address] [place] [address] [place] [id number] PCP - General Family Medicine 05/15/17 Louis Brewer MD [address] [place] [address] [place] [address] Consulting Physician Internal Medicine - Clinical Cardiac Electrophysiology 05/18/17
--- OUTSIDE RECORDS SUMMARY | 2025-04-20 13:21 | XMS_ITS | Encounter Summary ---
Author Organization [place] [address] Care Team Providers Care Assembly Instructions Writer Name Role Phone Erich Ball MD Primary Care Provider + [phone] Louis Brewer MD Unavailable [phone] Encounter Details Date Type Department Care Team (Late st Contact Info) Description 07/30/2017 Orders Only [facility] Ar[facility] Edg [address] [facility] [address] [place] [address] Louis Brewer MD [address] [place] [address] Social History Tobacco Use Types Packs/Day Years [...] CARDIAC CATH ORDERABLES Edited Result - Final [facility] [address] [place] [address] documented in this encounter Visit Diagnoses Not on filedocumented in this encounter Care Teams Assembly Instructions Writer Relationship Specialty Start Date End Date Erich Ball MD [address] [place] [address] [place] [id number] PCP - General Family Medicine 05/15/17 Louis Brewer MD [address] [facility] [place] [id number] Consulting Physician Internal Medicine - Clinical Cardiac Electrophysiology 05/18/17 documented as of this encounter
--- NOTE | 2025-04-20 14:52 | PC.NURSE ---
Hibiclens and sterile water used to clean the pts wound to his posterior head. Once clean an abrasion about the size of a quarter was present. no actual lac. no new complaints. no needs voiced. call ernst in reach. visiting with his .
== END 2025-04-20 16:17 | disposition home or self-care (01) ==
PROVIDERS: Emergency Provider Emergency Medicine; PCP Family Medicine
DX: S09.90XA Unspecified injury of head, initial encounter (principal); S01.01XA Laceration without foreign body of scalp, initial encounter; R00.1 Bradycardia, unspecified; I49.9 Cardiac arrhythmia, unspecified; W18.30XA Fall on same level, unspecified, initial encounter
CPT/HCPCS: 70450; 72125; 93005; 99285